=== PATIENT | male | born 1955 | race Caucasian/White ===

== ENCOUNTER 2017-06-02 15:00 | Emergency (ER) | payer OTHER ==
[~2017-06-02] VITALS: Ht 177.8 cm; Wt 72.6 kg
--- NOTE | 2017-06-02 15:20 | NUR ---
BIB [facility] C/O ONE CM LAC TO EYEBROW S/P TRIP AND FALL, DENIES LOC, NECK, OR BACK PAIN. PT AAOX3. SEEN BY MD FOR EVAL. VSS. SAFETY AND COMFORT MEASURES PROVIDED. WILL MONITOR.
--- NOTE | 2017-06-02 15:30 | NUR ---
AT FOR WOUND PROCEDURE.
--- NOTE | 2017-06-02 16:20 | NUR ---
Patient discharged to home in stable condition. Written and verbal after care instructions given. Patient verbalizes understanding of instruction. Pt ambulatory with a steady gait.
[2017-06-02 16:26] VITALS: BP 128/77
== END 2017-06-02 16:26 | disposition home or self-care (01) ==
LOC: ER 15:01
DX: S01.81XA Laceration without foreign body of other part of head, initial encounter (principal); G89.29 Other chronic pain; W01.0XXA Fall on same level from slipping, tripping and stumbling without subsequent striking against object, initial encounter; Y92.480 Sidewalk as the place of occurrence of the external cause; Y93.89 Activity, other specified; Y99.8 Other external cause status
CPT/HCPCS: 70450-TC; A4606; J3490; Z7610